=== PATIENT | female | born 1975 | race Caucasian/White ===

== ENCOUNTER 2023-01-22 12:47 | Emergency (ER) | payer SELFPAY ==
--- OUTSIDE RECORDS SUMMARY | 2023-01-22 12:51 | XMS REPORT | Continuity of Care Document ---
:1975 Author Organization [facility] t Address [address] [place] [address] Care Team Providers Name Role Phone ROSMERY PABLO Primary Care Physician Unavailable Bridget Saravia Attending Clinician Unavailable RONN CACERES Attending Clinician Unavailable RONN CACERES Attending Clinician Unavailable MALISSA ROSEN Attending Clinician Unavailable DELIO CORTES Attending Clinician Unavailable ROSMERY PABLO Attending Clinician Unavailable ELISA LUDWIG Attending Clinician Unavailable BILLY CORTEZ Attending Clinician Unavailable Billy Miguel Attending Clinician SHASHANK RAINES Attending Clinician Unavailable Doctor Unassigned, [place] Attending Clinician Unavailable Nandini Davenport Attending Clinician 2, [facility] Attending Clinician Unavailable NANDINI JOHNSON Attending Clinician Unavailable BILLY CORTEZ Admitting Clinician Unavailable Payers Payer Name Policy Type Policy Number Effective Date Expiration Date S ource COMMERCIAL [id number] 2021 NON-CONTRACT 00:00:00 GENERIC AETNA 53 [id number] [facility] ALLEGIANCE A [id number] 2021 CIGNA PLAN 00:00:00 Problems Condition Condition Condition Status Onset Resolution Last Treating Co mments Source Name Details Category Date Date Treatment Clinician Date No known No known Disease Unive rs active active ity of problems problems [facility] Allergies, Adverse Reactions, Alerts Allergy Allergy Status Severity Reaction(s) Onset Inactive Treating Comm ents Source Name Type Date Date Clinician NO KNOWN Drug Active Univers ALLERGIE Class ity of S [facility] Social History Social Habit Start Date Stop Date Quantity Comments Source Exposure to Not sure University of SARS-CoV-2 (event) [facility] History of Tobacco Current Smoker Co [facility] - Use [facility] Sex Assigned At [facility] - [facility] Alcohol intake 2021-09-12 2021-09-12 Current University of 00:00:00 00:00:00 non-drinker of [facility] alcohol Branch (finding) Cigarettes smoked 2021-03-17 2021-03-17 Univers ity of current (pack per 00:00:00 00:00:00 [facility] ) - Reported Branch Tobacco use and 2021-03-17 2021-03-17 Never used Universit y of exposure 00:00:00 00:00:00 [facility] Smoking Status Start Date Stop Date Source Current Smoker 2021-11-08 00:00:00 [facility] - [facility] Former smoker 2021-03-17 00:00:00 2021-03-17 00:00:00 Universi ty [facility] Medications Ordered Filled Start Stop Current Ordering Indication Dosage Frequency Signature Comments Components Source Medication Medication Date Date Medication? Clinician (SIG) Name Name Sulfamethox Sulfamethox 2021- No 2{table BID Sulfametho azole-Trime azole-Trime 10-13-03 t} xazole-Tri thoprim thoprim 00:00: 00:00 methoprim 800-160 MG 800-160 MG 00 :00 800-160 MG DULoxetine DULoxetine No 1{capsu QD DULoxetine HCl 20 MG HCl 20 MG 1-18 le} HCl 20 MG 00:00: 00 DULoxetine DULoxetine No 1{capsu QD DULoxetine HCl 20 MG HCl 20 MG 1-18 le} HCl 20 MG 00:00: 00 DULoxetine DULoxetine No 1{capsu QD DULoxetine HCl 20 MG HCl 20 MG 1-18 le} HCl 20 MG 00:00: 00 traMADol traMADol 2021- No 1{table BID traMADol HCl 50 MG HCl 50 MG 10-04 t_as_ne HCl 50 MG 00:00: 00:00 eded} 00 :00 HYDROcodone 2020-09- No 1{tbl} 1 tablet, Univers -acetaminop 11-13 Oral, ity of hen (NORCO 23:30: 22:37 ONCE, 1 Ancelmo as 5) 5-325 mg 00 :00 dose, On Medi jake tablet 1 Mon Branch tablet 09/12/21 at 1730, ANTONI ibuprofen 2020-09 Yes [id number] 800mg Take 1 Univers 800 mg 11-13 9103 tablet by ity of tablet 00:00: mouth [place] 00 every 8 Medical (eight) Branch hours as needed for Pain (scale 4-6). acetaminoph 2020-09- No [id number] 1{tbl} Take 1 U nivers en-codeine 11-13 tablet by ity of 300-30 mg 00:00: 05:59 mouth [place] tablet 00 :00 every 6 Medical (six) Branch hours as needed for Pain (scale 7-10) for up to 7 days. Indication s: acute pain metroNIDAZO 2020- No [id number] 500mg Take 1 Univers LE 500 mg 03-21- tablet by ity of tablet 00:00: 04:59 mouth 2 [place] 00 :00 (two) Medical times Branch daily with meals for 7 days. metroNIDAZO 2020- No [id number] 500mg Take 1 Univers LE 500 mg 03-21 tablet by ity of tablet 00:00: 04:59 mouth 2 [place] 00 :00 (two) Medical times Branch daily with meals for 7 days. metroNIDAZO 2020- No [id number] 500mg Take 1 Univers LE 500 mg -01 21- tablet by ity of tablet 00:00: 04:59 mouth 2 [place] 00 :00 (two) Medical times Branch daily with meals for 7 days. metroNIDAZO 2020- No [id number] 500mg Take 1 Univers LE 500 mg 03-21- tablet by ity of tablet 00:00: 04:59 mouth 2 [place] 00 :00 (two) Medical times Branch daily with meals for 7 days. acetaminoph 2020- No 1{tbl} Take 1 U nivers en-codeine -05 04- tablet by ity of (TYLENOL 00:00: 00:00 mouth [place] #3) 300-30 00 :00 every 4 Medica l mg tablet (four) Branch hours as needed for Pain (scale 7-10). acetaminoph 2020- No 1{tbl} Take 1 U nivers en-codeine 6-05 04- tablet by ity of (TYLENOL 00:00: 00:00 mouth [place] #3) 300-30 00 :00 every 4 Medica l mg tablet (four) Branch hours as needed for Pain (scale 7-10). No known No [facility] No known No Univers medications [facility] Ibuprofen Ibuprofen No TID Ibuprofen 800 MG 800 MG 800 MG Ibuprofen Ibuprofen No TID Ibuprofen 800 MG 800 MG 800 MG Ibuprofen Ibuprofen No TID Ibuprofen 800 MG 800 MG 800 MG Immunizations Ordered Filled Immunization Date Status Comments [facility] e Immunization Name Name SARS-COV-2 COVID-19 2021-02-24 Completed Unive rsity of MODERNA VACCINE 00:00:00 [facility] SARS-COV-2 COVID-19 2021-02-24 Completed Unive rsity of MODERNA VACCINE 00:00:00 [facility] SARS-COV-2 COVID-19 2021-02-24 Completed Unive rsity of MODERNA VACCINE 00:00:00 [facility] SARS-COV-2 COVID-19 2021-02-24 Completed Unive rsity of MODERNA VACCINE 00:00:00 [facility] SARS-COV-2 COVID-19 2021-02-24 Completed Unive rsity of MODERNA VACCINE 00:00:00 [facility] SARS-COV-2 COVID-19 2021-02-24 Completed Unive rsity of MODERNA VACCINE 00:00:00 [facility] SARS-COV-2 COVID-19 2021-02-24 Completed Unive rsity of MODERNA VACCINE 00:00:00 [facility] SARS-COV-2 COVID-19 2021-02-24 Completed Unive rsity of MODERNA VACCINE 00:00:00 [place] Med ical Branch SARS-COV-2 COVID-19 2021-02-24 Completed Unive rsity of MODERNA VACCINE 00:00:00 [facility] SARS-COV-2 COVID-19 2021-01-27 Completed Unive rsity of MODERNA VACCINE 00:00:00 [facility] SARS-COV-2 COVID-19 2021-01-27 Completed Unive rsity of MODERNA VACCINE 00:00:00 [facility] SARS-COV-2 COVID-19 2021-01-27 Completed Unive rsity of MODERNA VACCINE 00:00:00 [facility] Branch SARS-COV-2 COVID-19 2021-01-27 Completed Unive rsity of MODERNA VACCINE 00:00:00 [facility] Branch SARS-COV-2 COVID-19 2021-01-27 Completed Unive rsity of MODERNA VACCINE 00:00:00 [facility] Branch SARS-COV-2 COVID-19 2021-01-27 Completed Unive rsity of MODERNA VACCINE 00:00:00 [facility] Branch SARS-COV-2 COVID-19 2021-01-27 Completed Unive rsity of MODERNA VACCINE 00:00:00 [facility] Branch SARS-COV-2 COVID-19 2021-01-27 Completed Unive rsity of MODERNA VACCINE 00:00:00 [facility] Branch SARS-COV-2 COVID-19 2021-01-27 Completed Unive rsity of MODERNA VACCINE 00:00:00 [facility] Vital Signs Vital Name Observation Time Observation Value Comments Source height 2021-11-08 11:20:00 63.5 [in_i] [facility] weight 2021-11-08 11:20:00 194.0 [lb_av] [facility] temperature 2021-11-08 11:20:00 97.9 [degF] [facility] bmi 2021-11-08 11:20:00 33.82 kg/m2 [facility] oximetry 2021-11-08 11:20:00 99 % [facility] respiratory rate 2021-11-08 11:20:00 16 /min Comm on [facility] blood pressure 2021-11-08 11:20:00 123 mm[Hg] Common [facility] - systolic [facility] blood pressure 2021-11-08 11:20:00 80 mm[Hg] Common [facility] - diastolic [facility] height 2021-10-13 09:40:00 63.5 [in_i] Common [facility] weight 2021-10-13 09:40:00 196.0 [lb_av] Common [facility] temperature 2021-10-13 09:40:00 98.1 [degF] Common [facility] bmi 2021-10-13 09:40:00 34.17 kg/m2 [facility] oximetry 2021-10-13 09:40:00 98 % [facility] respiratory rate 2021-10-13 09:40:00 16 /min Comm on [facility] blood pressure 2021-10-13 09:40:00 136 mm[Hg] Common [facility] - systolic [facility] blood pressure 2021-10-13 09:40:00 78 mm[Hg] Common [facility] - diastolic [facility] height 2021-10-04 13:20:00 63.5 [in_i] Common [facility] weight 2021-10-04 13:20:00 195.0 [lb_av] Common [facility] temperature 2021-10-04 13:20:00 97.9 [degF] Common [facility] bmi 2021-10-04 13:20:00 34 kg/m2 [facility] oximetry 2021-10-04 13:20:00 97 % [facility] respiratory rate 2021-10-04 13:20:00 16 /min Comm on [facility] blood pressure 2021-10-04 13:20:00 138 mm[Hg] Common [facility] - systolic [facility] blood pressure 2021-10-04 13:20:00 82 mm[Hg] [facility] - diastolic [facility] Systolic blood 2021-09-12 20:59:00 143 mm[Hg] Univer sity of pressure [facility] Diastolic blood 2021-09-12 20:59:00 86 mm[Hg] Unive rsity of pressure [facility] Heart rate 2021-09-12 20:59:00 85 /min Universi ty of [facility] Body temperature 2021-09-12 20:59:00 36.94 Jen Univ ersity of [facility] Respiratory rate 2021-09-12 20:59:00 17 /min Univ ersity of [facility] Body height 2021-09-12 20:59:00 162.6 cm Universi ty of [facility] Body weight 2021-09-12 20:59:00 90.719 kg Universi ty of [facility] BMI 2021-09-12 20:59:00 34.33 kg/m2 Universi ty [facility] Oxygen saturation in 2021-09-12 20:59:00 98 /min University of Arterial blood by [facility] Pulse oximetry Branch Systolic blood 2021-03-17 20:12:00 128 mm[Hg] Univer sity of pressure [facility] Diastolic blood 2021-03-17 20:12:00 85 mm[Hg] Unive rsity of pressure [facility] Heart rate 2021-03-17 20:12:00 77 /min Universi ty of [facility] Body height 2021-03-17 20:12:00 162.6 cm [facility] Body weight 2021-03-17 20:12:00 91.627 kg [facility]i [facility] BMI 2021-03-17 20:12:00 34.67 kg/m2 [facility] Oxygen saturation in 2021-03-17 20:12:00 97 /min University of Arterial blood by [facility] Pulse oximetry Branch Procedures Procedure Date / Time Performed Performing Clinician Sourc e XR RIBS 3 VW RIGHT 2021-09-12 22:12:04 Billy Cortez Universi ty [facility] CONSENT/REFUSAL FOR 2021-09-12 20:55:31 Doctor Unassigned, No Un [facility] DIAGNOSIS AND Name [facility] TREATMENT EXTERNAL PROVIDER 2021-03-28 05:01:00 Doctor Unassigned, No Univ [facility] RECORDS Name [facility] Branch POCT URINALYSIS 2021-03-17 20:24:00 Nandini Johnson [facility] Encounters Start End Encounter Admission Attending Care Care Encounter Source Date/Time Date/Time Type Type Clinicians Facility Department ID 2022-02-08 Outpatient Saravia, STLMLC STLMLC [id number] Common 13:53:01 Bridget [facility] 2021-11-09 Outpatient Saravia, STLMLC STLMLC [id number] Common 10:02:05 Bridget [facility] 2021-11-04 Outpatient Saravia, STLMLC STLMLC [id number] Common 07:29:00 Bridget [facility] 2021-10-12 Outpatient Saravia, STLMLC STLMLC [id number] Common 14:36:58 Bridget [facility] 2022-12-26 2022-12-26 Outpatient Natty CORTES [facility] [id number] Univers 09:00:00 09:00:00 DELIO burch [facility] 2021-11-08 2021-11-08 OFFICE STLMLC STLMLC [id number] Co mmon 00:00:00 00:00:00 VISIT EST Spir it PT LEVEL 3 [facility] 2021-10-13 2021-10-13 OFFICE STLMLC STLMLC [id number] Co mmon 00:00:00 00:00:00 VISIT EST Spir it PT LEVEL 3 [facility] 2021-10-04 2021-10-04 OFFICE STLMLC STLMLC [id number] Co mmon 00:00:00 00:00:00 VISIT NEW Spir it PT LEVEL 4 [facility] 2021-09-27 2021-09-27 Outpatient Natty PABLO [facility] [id number] Univers 08:30:00 08:30:00 ROSMERY medrano [facility] 2021-09-27 2021-09-27 Outpatient R OZIEL, [facility] [id number] Univers 07:45:00 07:45:00 ELISA medrano [facility] 2021-09-12 2021-09-12 Emergency X [facility]IE[facility] [id number] Univers 15:01:00 17:09:00 BILLY medrano [facility] 2021-09-12 2021-09-12 [facility] [id number] Univers 15:01:00 17:09:00 Billy DEWITT [id number] i ty of [id number] [phone] [facility] 084 Branch 2021-04-18 2021-04-18 [facility] [id number] Univers 16:30:00 16:30:00 ROSMERY mitchell [facility] 2021-04-01 2021-04-01 [facility] [id number] Univers 15:00:00 15:00:00 SHASHANK ling [facility] 2021-03-28 2021-03-28 Orders Doctor MARTINEZ [id number] Univers 00:00:00 00:00:00 Only Unassigned, LANRE [id number] ity of [place] [facility] [id number] Ancelmo as [phone] [facility] 009 [place] 2021-03-21 2021-03-21 Telephone [facility] [id number] Univers 00:00:00 00:00:00 Nandini Dewitt [id number] it[id number] [phone] [facility] 044 [facility] 2021-03-21 2021-03-21 Telephone [facility] [id number] Univers 00:00:00 00:00:00 Nandini [facility] [id number] i ty of [place] [id number] [place] as Professio [phone] Mo dical nal 044 [facility] One 2021-03-18 2021-03-18 Telephone Elizabeth [facility] [id number] Univers 00:00:00 00:00:00 Nandini Dewitt [id number] it[id number] [phone] Mo dical nal 044 [facility] 2021-03-17 2021-03-17 Soft 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 [id number] Univers 15:00:00 15:53:47 NANDINI medrano o f [facility] Results Test Description Test Time Test Comments Results Result Comments Source POCT URINALYSIS W SPECIFIC GRAVITY 2021-03-17 20:25:00 Test Item Value Reference Range Interpretation Comme nts POCT U SP GRAV (test code = 3255) 1.030 mg/dl 1.005-1.025 A POCT PH U (test code = 3254) 5 mg/dl 5-8 POCT U LEUK EST (test code = 3263) Negative Negative - Negative POCT U NIT (test code = 3262) Negative Negative - Negative POCT U PROT (test code = 3259) Negative Negative - Negative POCT U GLU (test code = 3256) Negative Negative - Negative POCT U KETONE (test code = 3258) Negative Negative - Negative POCT U UROBILI (test code = 3260) 0.2 mg/dl 0.2-1 POCT U BILI (test code = 3261) Negative Negative - Negative POCT U BLD (test code = 3257) Negative Negative - Negative POCT U COLOR (test code = 3266) Yellow POCT U APPEAR (test code = 3267) Clear Lab Interpretation (test code = 08772-2) Abnormal [facility] SPECIFIC [id number] 20:25:00 Test Item Value Reference Range Interpretation Comments POCT U SP GRAV (test code = 1.030 mg/dl 1.005-1.025 A 3255) POCT PH U (test code = 3254) 5 mg/dl 5-8 POCT U LEUK EST (test code = Negative Negative - Negative 3263) POCT U NIT (test code = 3262) Negative Negative - Negative POCT U PROT (test code = Negative Negative - Negative 3259) POCT U GLU (test code = 3256) Negative Negative - Negative POCT U KETONE (test code = Negative Negative - Negative 3258) POCT U UROBILI (test code = 0.2 mg/dl 0.2-1 3260) POCT U BILI (test code = Negative Negative - Negative 3261) POCT U BLD (test code = 3257) Negative Negative - Negative POCT U COLOR (test code = Yellow 3266) POCT U APPEAR (test code = Clear 3267) Lab Interpretation (test code Abnormal = 74583-0) [facility]
[2023-01-22 15:32] LABS: Specific Gravity 1.027 (1.005-1.030); Urine Bacteria None Seen /HPF (<20); Urine Bilirubin NEGATIVE (Negative); Urine Blood Negative (Negative); Urine Clarity Extremely Turbid (Clear); Urine Color Light-Orange (Yellow); Urine Crystals Unidentified Many /HPF (None Seen); Urine Glucose NEGATIVE (Negative); Urine Protein NEGATIVE (Negative); Urine RBC <5 /HPF (None Seen); Urine Urobilinogen Normal (Normal); Urine WBC Clump Many /HPF (None Seen)
[2023-01-22 15:34] LABS: Specific Gravity 1.027 (1.005-1.030)
[2023-01-22 16:11] LABS: Lymphocytes % 27.3 % (15.3-44.8); MCV 86.8 fL (80-100); MPV 9.8 fL (7.6-11.3)
[2023-01-22] MEDS ORDERED: MORPHINE 4 MG/ML SYR ONE (16:16)
[2023-01-22] MEDS ORDERED: ONDANSETRON 4 MG/2 ML VIAL ONE (16:16)
[2023-01-22] MEDS ORDERED: NA CHLORIDE 0.9% 1,000 ML ONE (16:33)
[2023-01-22 16:38] LABS: Albumin 4.2 g/dL (3.4-5.0); Bilirubin Total 0.5 mg/dL (0.2-1.0); Potassium 3.6 mEq/L (3.5-5.1); Protein, Total 8.6 g/dL (6.4-8.2)
--- NOTE | 2023-01-22 18:07 | RAD REPORT ---
EXAM DESCRIPTION: CT - Abdomen Pelvis W Contrast - 01/22/2023 5:21 pm CLINICAL HISTORY: ABD PAIN COMPARISON: No comparisons TECHNIQUE: Thin cut axial CT imaging of the abdomen and pelvis was performed following intravenous a dministration of 100 mL Isovue 300. Multiplanar reformats were generated and reviewed. All CT scans are performed using dose optimization technique as appropriate and may include automated exposure control or mA/KV adjustment according to patient size. FINDINGS: No suspicious findings in the lung bases. 7 millimeter calcified granuloma just above the right hemidiaphragm. Hypoattenuating lesion, with nodular marginal enhancement, along the inferior margin of the liver jackie suring 1.2 centimeter, not fully characterized, but suggestive of a small hemangioma. No other parenc hymal hepatic abnormality. The adrenal glands, spleen, and pancreas show no suspicious findings. Gall bladder contains at least 2 sizable cholesterol containing stones, largest measuring 2.2 centimeter. Symmetric renal function is seen with no hydronephrosis or suspicious renal mass. No dilated bowel loops or bowel wall thickening. No free air, free fluid or inflammatory stranding. N o hernia, mass or bulky lymphadenopathy. The urinary bladder is without significant finding. No suspicious bony findings. IMPRESSION: No acute intra-abdominal process. Incidental findings as above.
--- NOTE | 2023-01-22 18:37 | ER ---
Nurse's Notes [facility] Name: Radha Jama Age: 47 yrs Sex: Female : 1975 Arrival Date: 01/22/2023 Time: 12:47 Bed 17 Private MD: Diagnosis: Upper abdominal pain, unspecified;Abdominal pain, unspecified-Left flank pain Presentation: 01/22 13:37 Chief complaint: Chief complaint: Patient states: Left flank pain x 1 week ago. Pt also aa5 reports nausea/vomiting/diarrhea, reports positive test 2 weeks ago. 13:37 Onset of symptoms was January 2023. aa5 13:37 Coronavirus screen: diarrhea, vomiting. Ebola Screen: Patient denies travel to an [facility] Ebola-affected area in the 21 days before illness onset. Initial Sepsis Screen: Does the patient meet any 2 criteria? No. Patient's initial sepsis screen is negative. Does the patient have a suspected source of infection? No. Patient's initial sepsis screen is negative. Risk Assessment: Do you want to hurt yourself or someone else? Patient reports no desire to harm self or others. 13:37 Acuity: SHERRIE 3 aa5 13:37 Method Of Arrival: Ambulatory aa5 Historical: - Allergies: 13:39 No Known Allergies; aa5 - Home Meds: 13:39 None [Active]; aa5 - PMHx: 13:39 None; aa5 - PSHx: 13:39 hysterectomy; aa5 13:39 Appendectomy; aa5 - Immunization history:: Adult Immunizations unknown. - Social history:: Smoking status: Patient denies any tobacco usage or history of. Screenin:01 [facility] ED Fall Risk Assessment (Adult) History of falling in the last 3 months, kc6 including since admission No falls in past 3 months (0 pts) Confusion or Disorientation No (0 pts) Intoxicated or Sedated No (0 pts) Impaired Gait No (0 pts) Mobility Assist Device Used No (0 pt) Altered Elimination No (0 pt) Score/Fall Risk Level 0 - 2 = Low Risk Oriented to surroundings, Maintained a safe environment, Educated pt \T\ family on fall prevention, incl call for assistance when getting out of bed, Assessed \T\ reinforced patient's understanding of fall precautions, Hourly rounding (assess needs \T\ fall precautionary measures) done. Abuse screen: Denies threats or abuse. Denies injuries from another. Nutritional screening: No deficits noted. Tuberculosis screening: No symptoms or risk factors identified. Assessment: 16:00 General: Appears in no apparent distress. uncomfortable, Behavior is cooperative, kc6 appropriate for age, crying. Pain: Complains of pain in left upper quadrant and left lower quadrant Pain does not radiate. Pain currently is 7 out of 10 on a pain scale. Neuro: Richards Agitation-Sedation Scale (RASS): 0 - Alert and Calm Level of Consciousness is awake, alert, obeys commands, Oriented to person, place, time, situation, Appropriate for age. Cardiovascular: Capillary refill < 3 seconds. Respiratory: Airway is patent Trachea midline Respiratory effort is even, unlabored, Respiratory pattern is regular, symmetrical. GI: Abdomen is flat, non-distended, Bowel sounds present X 4 quads. Abd is soft X 4 quads Abdomen is tender to palpation in left upper quadrant and left lower quadrant Reports lower abdominal pain, diarrhea, nausea, vomiting. : No signs and/or symptoms were reported regarding the genitourinary system. EENT: No signs and/or symptoms were reported regarding the EENT system. Derm: No signs and/or symptoms reported regarding the dermatologic system. Skin is intact, Skin is pink, warm \T\ dry. Musculoskeletal: No signs and/or symptoms reported regarding the musculoskeletal system. Circulation, motion, and sensation intact. Capillary refill < 3 seconds, Range of motion: intact in all extremities. 17:00 Reassessment: Patient appears in no apparent distress at this time. No changes from kc6 previously documented assessment. Patient and/or family updated on plan of care and expected duration. Pain level reassessed. Patient is alert, oriented x 3, equal unlabored respirations, skin warm/dry/pink. 18:00 Reassessment: Patient appears in no apparent distress at this time. No changes from kc6 previously documented assessment. Patient and/or family updated on plan of care and expected duration. Pain level reassessed. Patient is alert, oriented x 3, equal unlabored respirations, skin warm/dry/pink. 18:36 Reassessment: discharge pending fluid completion. kc6 19:00 Reassessment: ASSUMED CARE OF PT. PT NEEDING TO USE RESTROOM. PT UP AND AMBULATING TO [facility] BATHROOM. NO DIZZINESS NOTED. VS STABLE. AT BEDSIDE. 19:14 Reassessment: PT DCd PENDING FLUIDS. 500ML INFUSING. jj7 Vital Signs: 13:37 BP 145 / 99; Pulse 82; Resp 18 S; Temp 97.7(TE); Pulse Ox 99% on R/A; Weight 88.45 kg aa5 (R); Height 5 ft. 4 in. (R); 16:03 BP 143 / 86; Pulse 78; Resp 18 S; Pulse Ox 100% on R/A; Pain 7/10; kc6 17:01 BP 130 / 81; Pulse 69; Resp 18 S; Pulse Ox 96% on R/A; kc6 17:59 BP 119 / 73; Pulse 65; Resp 18 S; Pulse Ox 97% on R/A; kc6 19:00 BP 131 / 93; Pulse 72; Resp 18; Pulse Ox 99% ; jj7 19:48 BP 127 / 84; Pulse 67; Resp 20; Pulse Ox 97% ; jj7 13:37 Body Mass Index 33.47 (88.45 kg, 162.56 cm) aa5 16:03 Pain Scale: Adult [facility] ED Course: 12:50 Patient arrived in ED. mr 13:19 Markel Villalba MD is Attending Physician. kdr 13:37 Arm band placed on. aa5 13:42 Triage completed. aa5 15:48 Kenna Juárez, MARIIA is Primary Nurse. kc6 16:01 Patient has correct armband on for positive identification. Bed in low position. Call [facility] light in reach. Side rails up X 1. Adult w/ patient. 16:02 Inserted saline lock: 20 gauge in right antecubital area, using aseptic technique. [facility] Blood collected. 17:23 CT Abd/Pelvis - IV Contrast Only In Process Unspecified. EDMS 19:51 No provider procedures requiring assistance completed. IV discontinued, intact, jj7 bleeding controlled, No redness/swelling at site. Pressure dressing applied. Administered Medications: 16:14 Drug: morphine IVP or IV 4 mg Route: IVP; Infused Over: 4 mins; Site: right antecubital;[facility] 17:47 Follow up: Response: No adverse reaction; Pain is unchanged, physician notified; RASS: [facility] Alert and Calm (0) 16:14 Drug: Ondansetron IVP 4 mg Route: IVP; Site: right antecubital; kc6 17:47 Follow up: Response: No adverse reaction; Nausea is decreased kc6 16:29 Drug: NS 0.9% IV 1000 ml Route: IV; Rate: 1 bolus; Site: right antecubital; kc6 17:29 Follow up: Response: No adverse reaction; IV Status: Completed infusion; IV Intake: kc6 1000ml 18:42 Drug: NS 0.9% IV 500 ml Route: IV; Rate: bolus; Site: right antecubital; kc6 19:47 Follow up: IV Status: Completed infusion jj7 18:42 Drug: Ciprofloxacin PO 500 mg Route: PO; kc6 19:03 Follow up: Response: No adverse reaction kc6 18:42 Drug: metroNIDAZOLE PO 500 mg Route: PO; kc6 19:03 Follow up: Response: No adverse reaction kc6 19:48 Follow up: Response: No adverse reaction jj7 Medication: 19:52 VIS not applicable for this client. jj7 Intake: 17:29 IV: 1000ml; Total: 1000ml. kc6 Outcome: 18:36 Discharge ordered by . kdr 19:51 Discharged to home ambulatory, with significant other. jj7 19:51 Condition: good 19:51 Discharge instructions given to patient, Instructed on discharge instructions, medication usage, Demonstrated understanding of instructions, medications, Prescriptions given X 4. 19:52 Patient left the ED. jj7 Signatures: Dispatcher [employer] EDMS Markel Villalba MD MD kdr Hoa FloresDemetria RN RN Kenna Mora RN RN All Miranda RN RN jj7 Corrections: (The following items were deleted from the chart) 13:42 13:37 Chief complaint: aa5 aa5
--- NOTE | 2023-01-22 18:37 | EDPHYS ---
Physician Documentation [facility] Name: Radha Jama Age: 47 yrs Sex: Female : 1975 Arrival Date: 01/22/2023 Time: 12:47 Bed 17 Private MD: ED Physician Markel Villalba HPI: 01/22 17:30 This 47 yrs old Female presents to ER via Ambulatory with complaints of Abdominal Pain, kdr Flank Pain. 17:30 Patient complains of left flank pain for about a week. Patient is also had some nausea, kdr vomiting and diarrhea. She was reportedly had a positive test 2 weeks ago as well. Historical: - Allergies: 13:39 No Known Allergies; aa5 - Home Meds: 13:39 None [Active]; aa5 - PMHx: 13:39 None; aa5 - PSHx: 13:39 hysterectomy; aa5 13:39 Appendectomy; aa5 - Immunization history:: Adult Immunizations unknown. - Social history:: Smoking status: Patient denies any tobacco usage or history of. ROS: 17:32 Constitutional: Negative for fever, chills, and weight loss, Eyes: Negative for injury, kdr pain, redness, and discharge, Neck: Negative for injury, pain, and swelling, Cardiovascular: Negative for chest pain, palpitations, and edema, Respiratory: Negative for shortness of breath, cough, wheezing, and pleuritic chest pain, Back: Negative for injury and pain, : Negative for injury, bleeding, discharge, and swelling, MS/Extremity: Negative for injury and deformity, Skin: Negative for injury, rash, and discoloration, Neuro: Negative for headache, weakness, numbness, tingling, and seizure activity. Psych: Negative for depression, anxiety, suicide ideation, homicidal ideation, and hallucinations, Allergy/Immunology: Negative for hives, rash, and allergies, Endocrine: Negative for neck swelling, polydipsia, polyuria, polyphagia, and marked weight changes, Hematologic/Lymphatic: Negative for swollen nodes, abnormal bleeding, and unusual bruising. 17:32 Abdomen/GI: Positive for abdominal pain. 17:33 Abdomen/GI: Positive for nausea, vomiting, and diarrhea, of the anterior aspect of left kdr lateral abdomen, left upper quadrant and left lower quadrant. Exam: 17:33 Constitutional: This is a well developed, well nourished patient who is awake, alert, kdr and in no acute distress. Head/Face: Normocephalic, atraumatic. Eyes: Pupils equal round and reactive to light, extra-ocular motions intact. Lids and lashes normal. Conjunctiva and sclera are non-icteric and not injected. Cornea within normal limits. Periorbital areas with no swelling, redness, or edema. Neck: Trachea midline, no thyromegaly or masses palpated, and no cervical lymphadenopathy. Supple, full range of motion without nuchal rigidity, or vertebral point tenderness. No Meningismus. Chest/axilla: Normal chest wall appearance and motion. Nontender with no deformity. No lesions are appreciated. Cardiovascular: Regular rate and rhythm with a normal S1 and S2. No gallops, murmurs, or rubs. Normal PMI, no JVD. No pulse deficits. Respiratory: Lungs have equal breath sounds bilaterally, clear to auscultation and percussion. No rales, rhonchi or wheezes noted. No increased work of breathing, no retractions or nasal flaring. Back: No spinal tenderness. No costovertebral tenderness. Full range of motion. Skin: Warm, dry with normal turgor. Normal color with no rashes, no lesions, and no evidence of cellulitis. MS/ Extremity: Pulses equal, no cyanosis. Neurovascular intact. Full, normal range of motion. Neuro: Awake and alert, GCS 15, oriented to person, place, time, and situation. Cranial nerves II-XII grossly intact. Motor strength 5/5 in all extremities. Sensory grossly intact. Cerebellar exam normal. Normal gait. Psych: Awake, alert, with orientation to person, place and time. Behavior, mood, and affect are within normal limits. 17:33 Abdomen/GI: Inspection: abdomen appears normal, obese Bowel sounds: diminished, in all quadrants, Palpation: soft, mild abdominal tenderness, in the anterior aspect of left lateral abdomen, left upper quadrant and left lower quadrant. Vital Signs: 13:37 BP 145 / 99; Pulse 82; Resp 18 S; Temp 97.7(TE); Pulse Ox 99% on R/A; Weight 88.45 kg aa5 (R); Height 5 ft. 4 in. (R); 16:03 BP 143 / 86; Pulse 78; Resp 18 S; Pulse Ox 100% on R/A; Pain 7/10; kc6 17:01 BP 130 / 81; Pulse 69; Resp 18 S; Pulse Ox 96% on R/A; kc6 17:59 BP 119 / 73; Pulse 65; Resp 18 S; Pulse Ox 97% on R/A; kc6 19:00 BP 131 / 93; Pulse 72; Resp 18; Pulse Ox 99% ; jj7 19:48 BP 127 / 84; Pulse 67; Resp 20; Pulse Ox 97% ; jj7 13:37 Body Mass Index 33.47 (88.45 kg, 162.56 cm) aa5 16:03 Pain Scale: Adult kc6 MDM: 17:33 Data reviewed: vital signs, nurses notes, lab test result(s), radiologic studies. kdr 18:36 Patient medically screened. kdr 01/22 13:40 Order name: CBC with Diff; Complete Time: 17:29 aa5 01/22 13:40 Order name: CMP; Complete Time: 17:29 aa5 01/22 13:40 Order name: Lipase; Complete Time: 17:29 aa5 01/22 13:41 Order name: Test, Serum; Complete Time: 17:29 aa5 01/22 13:46 Order name: Urinalysis w/ reflexes; Complete Time: 16:04 aa5 01/22 13:46 Order name: Test, Urine; Complete Time: 16:04 aa5 01/22 15:36 Order name: Urine Culture EDSC 01/22 16:05 Order name: CT Abd/Pelvis - IV Contrast Only; Complete Time: 18:11 kdr 01/22 13:40 Order name: IV Saline Lock; Complete Time: 15:58 aa5 01/22 13:40 Order name: Labs collected and sent; Complete Time: 15:58 aa5 Administered Medications: 16:14 Drug: morphine IVP or IV 4 mg Route: IVP; Infused Over: 4 mins; Site: right antecubital;6 17:47 Follow up: Response: No adverse reaction; Pain is unchanged, physician notified; RASS: kc6 Alert and Calm (0) 16:14 Drug: Ondansetron IVP 4 mg Route: IVP; Site: right antecubital; 6 17:47 Follow up: Response: No adverse reaction; Nausea is decreased [facility] 16:29 Drug: NS 0.9% IV 1000 ml Route: IV; Rate: 1 bolus; Site: right antecubital; kc6 17:29 Follow up: Response: No adverse reaction; IV Status: Completed infusion; IV Intake: kc6 1000ml 18:42 Drug: NS 0.9% IV 500 ml Route: IV; Rate: bolus; Site: right antecubital; kc6 19:47 Follow up: IV Status: Completed infusion jj7 18:42 Drug: Ciprofloxacin PO 500 mg Route: PO; kc6 19:03 Follow up: Response: No adverse reaction kc6 18:42 Drug: metroNIDAZOLE PO 500 mg Route: PO; kc6 19:03 Follow up: Response: No adverse reaction kc6 19:48 Follow up: Response: No adverse reaction jj7 Disposition Summary: 01/22/23 18:36 Discharge Ordered Location: Home kdr Problem: new kdr Symptoms: have improved kdr Condition: Stable kdr Diagnosis - Upper abdominal pain, unspecified kdr - Abdominal pain, unspecified - Left flank pain kdr Followup: kdr - With: Private Physician - When: 2 - 3 days - Reason: If symptoms return, Further diagnostic work-up, Recheck today's complaints, Continuance of care, Re-evaluation by your physician Discharge Instructions: - Discharge Summary Sheet kdr - Flank Pain, Adult kdr - Abdominal Pain, Adult, [id number] kdr Forms: - Medication Reconciliation Form kdr - Thank You Letter kdr - Antibiotic Education kdr - Prescription Opioid Use kdr Prescriptions: - Flagyl 500 mg Oral Tablet - take 1 tablet by ORAL route every 12 hours for 7 days; 14 tablet; Refills: 0, kdr Product Selection Permitted - Zofran 4 mg Oral Tablet - take 1 tablet by ORAL route every 12 hours As needed; 6 tablet; Refills: 0, kdr Product Selection Permitted - Cipro 500 mg Oral Tablet - take 1 tablet by ORAL route every 12 hours for 7 days; 14 tablet; Refills: 0, kdr Product Selection Permitted - Tramadol 50 mg Oral Tablet - take 1 tablet by ORAL route every 8 hours as needed; 12 tablet; Refills: 0, kdr Product Selection Permitted Signatures: Dispatcher [employer] Markel Castellano MD MD kdr Demetria Molina RN RN aa5 Kenna Juárez RN RN kc6 All Shanks RN jj7
[2023-01-22] MEDS ORDERED: NA CHLORIDE 0.9% 500 ML ONE (18:43)
[2023-01-22] MEDS ORDERED: metroNIDAZOLE 500 MG TABLET ONE (18:45)
[2023-01-22] MEDS ORDERED: CIPROFLOXACIN HCL 500 MG TAB ONE (18:46)
[2023-01-22 20:41] VITALS: TEMP 97.7
[2023-01-22 20:50] VITALS: BP 127/84; O2SAT 97
== END 2023-01-22 19:52 | disposition home or self-care (01) ==
LOC: ER 12:47
DX: R10.10 Upper abdominal pain, unspecified (principal); R10.32 Left lower quadrant pain
CPT/HCPCS: 36415; 74177; 80053; 81001; 81025; 83690; 84703; 85025; 87086; 87088; 96361; 96374; 96375; 99284; J2405; J7030; J7040; Q9967

== ENCOUNTER 2023-08-15 18:50 | Emergency (ER) | payer SELFPAY ==
--- OUTSIDE RECORDS SUMMARY | 2023-08-15 19:33 | XMS REPORT | Continuity of Care Document ---
:[address] [facility] t Address [address] [place] [address] Care Team Providers Name Role Phone ROSMERY PABLO Primary Care Physician Unavailable Bridget Saravia Attending Clinician Unavailable RONN CACERES Attending Clinician Unavailable RONN CACERES Attending Clinician Unavailable Doctor Unassigned, [place] Attending Clinician Unavailable MALISSA ROSEN Attending Clinician Unavailable DELIO CORTES Attending Clinician Unavailable ROSMERY PABLO Attending Clinician Unavailable ELISA LUDWIG Attending Clinician Unavailable BILLY CORTEZ Attending Clinician Unavailable Billy Miguel Attending Clinician ADSHASHANK ARITA Attending Clinician Unavailable Nandini Davenport Attending Clinician 2, [facility] Attending Clinician Unavailable NANDINI JOHNSON Attending Clinician Unavailable BILLY CORTEZ Admitting Clinician Unavailable Payers Payer Name Policy Type Policy Number Effective Date Expiration Date S ource COMMERCIAL [id number] 2021 NON-CONTRACT 00:00:00 GENERIC AETNA 53 [id number] [facility] ALLEGIANCE A [id number] 2021 CIGNA PLAN 00:00:00 Problems Condition Condition Condition Status Onset Resolution Last Treating Co mments Source Name Details Category Date Date Treatment Clinician Date No known No known Disease Unive rs active active ity of problems problems [facility] Allergies, Adverse Reactions, Alerts Allergy Allergy Status Severity Reaction(s) Onset Inactive Treating Comm ents Source Name Type Date Date Clinician NO KNOWN Drug Active Univers ALLERGIE Class ity of S [facility] Social History Social Habit Start Date Stop Date Quantity Comments Source Sexual orientation Univer sity [facility] Exposure to Not sure University of SARS-CoV-2 (event) [facility] History of Tobacco Current Smoker Co m[facility] - Use [facility] Sex Assigned At Common [facility] [place] - [facility] Alcohol intake 2021-09-12 2021-09-12 Current University of 00:00:00 00:00:00 non-drinker of [facility] alcohol [place] (finding) History of Social 2021-03-17 2021-03-17 Univers ity of function 00:00:00 00:00:00 [facility] Cigarettes smoked 2021-03-17 2021-03-17 Univers ity of current (pack per 00:00:00 00:00:00 [facility] ) - Reported Branch Tobacco use and 2021-03-17 2021-03-17 Smokeless Universit y of exposure 00:00:00 00:00:00 tobacco non-[address] [facility] Smoking Status Start Date Stop Date Source Current Smoker 2021-11-08 00:00:00 [facility] Spiri t - [facility] Ex-smoker 2021-03-17 00:00:00 2021-03-17 00:00:00 Universi ty [facility] Medications Ordered Filled Start Stop Current Ordering [...] HCl 20 MG 00:00: 00 DULoxetine DULoxetine 0 No 1{capsu QD DULoxetine HCl 20 MG HCl 20 MG 1-18 le} HCl 20 MG 00:00: 00 DULoxetine DULoxetine No 1{capsu QD DULoxetine HCl 20 MG HCl 20 MG 10-04 le} HCl 20 MG 00:00: 00 traMADol [...] 09/12/21 at 1730, ANTONI ibuprofen 2020-09 Yes [id number] 800mg Take 1 Univers 800 mg 11-13 9103 tablet by ity of tablet 00:00: mouth [place] 00 every 8 Medical (eight) Branch hours as needed for Pain (scale 4-6). ibuprofen 2020-09 Yes [id number] 800mg Take 1 Univers 800 mg 11-13 9103 tablet by ity of tablet 00:00: mouth [place] 00 every 8 Medical (eight) Branch hours as needed for Pain (scale 4-6). acetaminoph 2020-09 No 4647 1{tbl} Take 1 U nivers en-codeine 11-13 tablet by ity of 300-30 mg 00:00: 05:59 mouth [place] tablet 00 :00 every 6 Medical (six) Branch hours as needed for Pain (scale 7-10) for up to 7 days. Indication s: acute pain metroNIDAZO 2020- No [id number] 500mg Take 1 Univers LE 500 mg 03-21 tablet by ity of tablet 00:00: 04:59 mouth 2 [place] 00 :00 (two) Medical times Branch daily with meals for 7 days. metroNIDAZO 2020- No [id number] 500mg Take 1 Univers LE 500 mg 03-21 tablet by ity of tablet 00:00: 04:59 mouth 2 [place] 00 :00 (two) Medical times Branch daily with meals for 7 days. metroNIDAZO 2020- No [id number] 500mg Take 1 Univers LE 500 mg 03-21 tablet by ity of tablet 00:00: 04:59 mouth 2 [place] 00 :00 (two) Medical times Branch daily with meals for 7 days. metroNIDAZO 2020- No [id number] 500mg Take 1 Univers LE 500 mg 03-21 tablet by ity of tablet 00:00: 04:59 mouth 2 [place] 00 :00 (two) Medical times Branch daily with meals for 7 days. acetaminoph 2020- No 1{tbl} Take 1 U nivers en-codeine 03-06 tablet by ity of (TYLENOL 00:00: 00:00 mouth [place] #3) 300-30 00 :00 every 4 Medica l mg tablet (four) Branch hours as needed for Pain (scale 7-10). acetaminoph 2020- No 1{tbl} Take 1 U nivers en-codeine 03-06 tablet by ity of (TYLENOL 00:00: 00:00 mouth [place] #3) 300-30 00 :00 every 4 Medica l mg tablet (four) Branch hours as needed for Pain (scale 7-10). No known No Univers medications ity of [facility] No known No [facility]fen Ibuprofen No TID Ibuprofen 800 MG 800 MG 800 MG Ibuprofen Ibuprofen No TID Ibuprofen 800 MG 800 MG 800 MG Ibuprofen Ibuprofen No TID Ibuprofen 800 MG 800 MG 800 MG Immunizations Ordered Filled Date Status Comments Source Immunization Name Immunization Name SARS-COV-2 COVID-2021-02-24 Completed Unive rsity of MODERNA VACCINE 00:00:00 [facility] SARS-COV-2 COVID-19 2021-02-24 Completed Unive rsity of MODERNA VACCINE 00:00:00 [facility] SARS-COV-2 COVID-19 2021-02-24 Completed Unive rsity of MODERNA VACCINE 00:00:00 [facility] SARS-COV-2 COVID-19 2021-02-24 Completed Unive rsity of MODERNA VACCINE 00:00:00 [facility] SARS-COV-2 COVID-19 2021-02-24 Completed Unive rsity of MODERNA VACCINE 00:00:00 [facility] SARS-COV-2 COVID-19 2021-02-24 Completed Unive rsity of MODERNA VACCINE 00:00:00 [place] Med ical Branch SARS-COV-2 COVID-19 2021-02-24 Completed Unive rsity of MODERNA VACCINE 00:00:00 [place] Med ical Branch SARS-COV-2 COVID-19 2021-02-24 Completed Unive rsity of MODERNA VACCINE 00:00:00 [place] Med ical Branch SARS-COV-2 COVID-19 2021-02-24 Completed Unive rsity of MODERNA VACCINE 00:00:00 [place] Med ical Branch SARS-COV-2 COVID-19 2021-01-27 Completed Unive rsity of MODERNA VACCINE 00:00:00 [place] Med ical Branch SARS-COV-2 COVID-19 2021-01-27 Completed Unive rsity of MODERNA VACCINE 00:00:00 [place] Med ical Branch SARS-COV-2 COVID-19 2021-01-27 Completed Unive rsity of MODERNA VACCINE 00:00:00 [place] Med ical Branch SARS-COV-2 COVID-19 2021-01-27 Completed Unive rsity of MODERNA VACCINE 00:00:00 [place] Med ical Branch SARS-COV-2 COVID-19 2021-01-27 Completed Unive rsity of MODERNA VACCINE 00:00:00 [place] Med ical Branch SARS-COV-2 COVID-19 2021-01-27 Completed Unive rsity of MODERNA VACCINE 00:00:00 [place] Med ical Branch SARS-COV-2 COVID-19 2021-01-27 Completed Unive rsity of MODERNA VACCINE 00:00:00 [place] [facility] ical Branch SARS-COV-2 COVID-19 2021-01-27 Completed Unive rsity of MODERNA VACCINE 00:00:00 [place] Med ical Branch SARS-COV-2 COVID-19 2021-01-27 Completed Unive rsity of MODERNA VACCINE 00:00:00 [place] Med ical Branch SARS-COV-2 COVID-19 Unknown Completed Unive rsity of MODERNA 12+ YRS [place] Med ical VACCINE Branch SARS-COV-2 COVID-19 Unknown Completed Unive rsity of MODERNA 12+ YRS [place] Med ical VACCINE Branch Vital Signs Vital Name Observation Time Observation Value Comments Source height 2021-11-08 11:20:00 63.5 [in_i] [facility] weight 2021-11-08 11:20:00 194.0 [lb_av] [facility] temperature 2021-11-08 11:20:00 97.9 [degF] Common [facility] bmi 2021-11-08 11:20:00 33.82 kg/m2 Common [facility] oximetry 2021-11-08 11:20:00 99 % [facility] respiratory rate 2021-11-08 11:20:00 16 /min Comm on [facility] blood pressure 2021-11-08 11:20:00 123 mm[Hg] [facility] - systolic [facility] blood pressure 2021-11-08 11:20:00 80 mm[Hg] Common [facility] - diastolic [facility] height 2021-10-13 09:40:00 63.5 [in_i] Common [facility] weight 2021-10-13 09:40:00 196.0 [lb_av] [facility] temperature 2021-10-13 09:40:00 98.1 [degF] [facility] bmi 2021-10-13 09:40:00 34.17 kg/m2 [facility] oximetry 2021-10-13 09:40:00 98 % Common [facility] respiratory rate 2021-10-13 09:40:00 16 /min Comm on [facility] blood pressure 2021-10-13 09:40:00 136 mm[Hg] Common [facility] - systolic [facility] blood pressure 2021-10-13 09:40:00 78 mm[Hg] Common [facility] - diastolic [facility] height 2021-10-04 13:20:00 63.5 [in_i] Common [facility] weight 2021-10-04 13:20:00 195.0 [lb_av] Common [facility] temperature 2021-10-04 13:20:00 97.9 [degF] Common [facility] bmi 2021-10-04 13:20:00 34 kg/m2 Common [facility] oximetry 2021-10-04 13:20:00 97 % Common S [facility] respiratory rate 2021-10-04 13:20:00 16 /min Comm on [facility] blood pressure 2021-10-04 13:20:00 138 mm[Hg] Common [facility] - systolic [facility] blood pressure 2021-10-04 13:20:00 82 mm[Hg] Common [facility] diastolic [facility] Systolic blood 2021-09-12 20:59:00 143 mm[Hg] Univer sity of [facility] Diastolic blood 2021-09-12 20:59:00 86 mm[Hg] Unive rsity of [facility] Heart rate 2021-09-12 20:59:00 85 /min Universi ty [facility] Body temperature 2021-09-12 20:59:00 36.94 Jen [facility] Res[facility] rate 2021-09-12 20:59:00 17 /min [facility] Body height 2021-09-12 20:59:00 162.6 cm Universi [facility] Body weight 2021-09-12 20:59:00 [facility]19 [facility] 2021-09-12 20:59:00 34.33 kg/m2 [facility] Oxygen saturation in 2021-09-12 20:59:00 98 /min University Arterial blood by [facility] Pulse oximetry Branch Systolic blood 2021-03-17 20:12:00 128 mm[Hg] Univer sity of [facility] Diastolic blood 2021-03-17 20:12:00 85 mm[Hg] Unive rsity of [facility] Heart rate 2021-03-17 20:12:00 77 /min Universi ty [facility] Body height 2021-03-17 20:12:00 162.6 cm [facility] Body weight 2021-03-17 20:12:00 91.627 kg [facility] BMI 2021-03-17 20:12:00 34.67 kg/m2 [facility] Oxygen saturation in 2021-03-17 20:12:00 97 /min University Arterial blood by [facility] Pulse oximetry Branch Procedures Procedure Date / Time Performed Performing Clinician Sourc e XR RIBS 3 VW RIGHT 2021-09-12 22:12:04 Billy Cortez [facility] CONSENT/REFUSAL FOR 2021-09-12 20:55:31 Doctor Unassigned, No Un [facility] DIAGNOSIS AND Name [facility] TREATMENT EXTERNAL PROVIDER 2021-03-28 05:01:00 Doctor Unassigned, No Univ [facility] RECORDS Name [facility] POCT URINALYSIS 2021-03-17 20:24:00 Nandini Johnson [facility] Encounters Start End Encounter Admission Attending Care Care Encounter Source Date/Time Date/Time Type Type Clinicians Facility Department ID 2022-02-08 Outpatient Saravia, STLMLC STLC [id number] Common 13:53:01 Bridget [facility] 2021-11-09 Outpatient Saravia, STLMLC STLMLC [id number] Common 10:02:05 Bridget [facility] 2021-11-04 Outpatient Saravia, STLMLC STLMLC [id number] Common 07:29:00 Bridget [facility] 2021-10-12 Outpatient Saravia, STLMLC STLMLC [id number] Common 14:36:58 Bridget [facility] 2023-02-02 2023-02-02 Outpatient RONN JOINER [facility] 1 [id number] Univers 11:00:00 11:00:00 RONN CACERES [facility] 2023-01-31 2023-01-31 Patient Doctor UNIVERSIT [id number] Univers 00:00:00 00:00:00 Secure Msg Unassigned, [facility] [id number] ity of [place] [facility] [id number] [facility] [id number] [address] 2022-12-26 2022-12-26 Outpatient Natty CORTES [facility] [id number] Univers 09:00:00 09:00:00 DELIO itling o f [facility] 2021-11-08 2021-11-08 OFFICE STLMLC STLMLC [id number] Co mmon 00:00:00 00:00:00 VISIT EST Spir it PT LEVEL 3 - [facility] 2021-10-13 2021-10-13 OFFICE STLMLC STLMLC [id number] Co mmon 00:00:00 00:00:00 VISIT EST Spir it PT LEVEL 3 - [facility] 2021-10-04 2021-10-04 OFFICE STLMLC STLMLC [id number] Co mmon 00:00:00 00:00:00 VISIT NEW Spir it PT LEVEL 4 - [facility] 2021-09-27 2021-09-27 Outpatient [facility] [id number] Univers 08:30:00 08:30:00 ROSMERY medrano [facility] 2021-09-27 2021-09-27 Outpatient Natty [facility] [id number] Univers 07:45:00 07:45:00 ELISA medrano [facility] 2021-09-12 2021-09-12 Emergency X CORTEZ, [facility] ERT [id number] Univers 15:01:00 17:09:00 BILLY nortonling [facility] 2021-09-12 2021-09-12 Emergency Cortez, [facility] [id number] Univers 15:01:00 17:09:00 Billy ESDRAS [id number] i ty of [place] [id number] [facility] [id number] [address] 2021-04-18 2021-04-18 Outpatient Natty [facility] [id number] Univers 16:30:00 16:30:00 ROSMERY medrano [facility] 2021-04-01 2021-04-01 Outpatient R YANNA, [facility] [id number] Univers 15:00:00 15:00:00 SHASHANK ity of [facility] 2021-03-28 2021-03-28 Orders Doctor MARTINEZ [id number] Univers 00:00:00 00:00:00 Only Unassigned, LANRE [id number] ity of [place] [facility] [id number] Ancelmo as [phone] [address] 2021-03-21 2021-03-21 Telephone [facility] [id number] Univers 00:00:00 00:00:00 Nandini Bynum [id number] it[id number] [place] [phone] Ms dic[address] 2021-03-21 2021-03-21 Telephone [facility] [id number] Univers 00:00:00 00:00:00 Nandini [facility] [id number] i ty of [place] [id number] [place] as Professio [phone] [facility] 044 [place] Office [facility] 2021-03-18 2021-03-18 Telephone [facility] [id number] Univers 00:00:00 00:00:00 Nandini Bynum [id number] [id number] [phone] Ms dical nal 044 [facility] 2021-03-17 2021-03-17 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 Supervisor 2, Adc Lab [facility] [id number] Univers 16:00:17 16:15:17 Visit Nandini oJhnson [id number] ity [place] [id number] [place] [phone] [facility] 353 [facility] 2021-03-17 2021-03-17 Office [facility] [id number] Univers 15:02:32 15:53:47 Visit Nandini Esdras [id number] [place] [id number] Marci Salazar [phone] Ms dical nal 044 [facility] 2021-03-17 2021-03-17 Outpatient Natty JOHNSON [facility] [id number] Univers 15:00:00 15:53:47 NANDINI medrano o f [facility] Results Test Description Test Time Test [...] 3267) Clear Lab Interpretation (test code = 16497-7) Abnormal [facility] W SPECIFIC [id number] 20:25:00 Test Item Value Reference Range Interpretation [...] (test code = Negative Negative - Negative 326) POCT U BLD (test code = 3257) Negative Negative - Negative POCT U COLOR (test code = Yellow 3266) POCT U APPEAR (test code = Clear 3267) Lab Interpretation (test code Abnormal = 40713-9) [facility]
[2023-08-15] MEDS ORDERED: ONDANSETRON 4 MG (ODT) TAB ONE (20:55)
--- NOTE | 2023-08-15 22:16 | EDPHYS ---
Physician Documentation [facility] Name: Radha Jama Age: 48 yrs Sex: Female : 1975 Arrival Date: 08/15/2023 Time: 18:50 Bed IW2 Private MD: ED Physician Marcellus Bear HPI: 08/15 20:45 This 48 yrs old Female presents to ER via Ambulatory with complaints of Flu Symptoms. cp 20:45 The patient or guardian reports cough, flu symptoms, fever, chills, body aches, sore cp throat. 20:45 Onset: The symptoms/episode began/occurred yesterday. Associated signs and symptoms: cp Pertinent negatives: diarrhea, vomiting. 20:45 Severity of symptoms: in the emergency department the symptoms are unchanged despite cp home interventions. 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 - Social history:: Smoking status: Patient denies any tobacco usage or history of. Patient/guardian denies using alcohol, street drugs. ROS: 20:50 Constitutional: Positive for body aches, chills, Negative for fever, poor PO intake, cp 20:50 Eyes: Negative for injury, pain, redness, and discharge, cp 20:50 ENT: Positive for rhinorrhea, sore throat, Negative for drainage from ear(s), ear pain, difficulty swallowing, difficulty handling secretions, 20:50 Respiratory: Positive for cough, with no reported sputum, Negative for wheezing, 20:50 Abdomen/GI: Negative for abdominal pain, vomiting, diarrhea, constipation, 20:50 Neuro: Negative for altered mental status, headache, weakness, 20:50 All other systems are negative, Exam: 20:55 Constitutional: The patient appears in no acute distress, alert, awake, non-toxic, well cp developed, well nourished, 20:55 Head/Face: Normocephalic, atraumatic. cp 20:55 Eyes: Periorbital structures: appear normal, Conjunctiva: normal, no exudate, no cp injection, Sclera: no appreciated abnormality, Lids and lashes: appear normal, bilaterally, 20:55 ENT: External ear(s): are unremarkable, Ear canal(s): are normal, clear, TM's: dullness, bilaterally, Nose: nasal drainage, that is minimal, Mouth: Lips: moist, Oral mucosa: moist, Posterior pharynx: Tonsils: no enlargement, no exudate, erythema, that is mild, 20:55 Neck: ROM/movement: is normal, is supple, no meningismus, no nuchal rigidity, 20:55 Chest/axilla: Inspection: normal, 20:55 Cardiovascular: Rate: normal, Rhythm: regular, 20:55 Respiratory: the patient does not display signs of respiratory distress, Respirations: normal, no use of accessory muscles, no retractions, labored breathing, is not present, Breath sounds: decreased breath sounds, are not appreciated, stridor, is not appreciated, + upper airway congestion. wheezing: is not appreciated, 20:55 Abdomen/GI: Exam negative for discomfort, distension, guarding, Inspection: abdomen appears normal, Vital Signs: 20:31 BP 146 / 91; Pulse 95; Resp 20; Temp 98.4; Pulse Ox 100% ; Weight 83.91 kg; Height 5 jj7 ft. 4 in. ; Pain 6/10; 22:43 BP 133 / 89; Pulse 89; Resp 18 S; Pulse Ox 100% on R/A; lg3 20:31 Body Mass Index 31.75 (83.91 kg, 162.56 cm) jj7 20:31 Pain Scale: Adult jj7 MDM: 20:37 Patient medically screened. cp 22:15 Data reviewed: vital signs, nurses notes, lab test result(s). cp 22:15 Differential diagnosis: bronchitis, flu, strep throat. I considered the following cp discharge prescriptions or medication management in the emergency department Medications were administered in the Emergency Department. See MAR. Counseling: I had a detailed discussion with the patient and/or guardian regarding the historical points, exam findings, and any diagnostic results supporting the discharge/admit diagnosis, lab results, to return to the emergency department if symptoms worsen or persist or if there are any questions or concerns that arise at home. 08/15 20:38 Order name: COVID-19 SARS RT PCR; Complete Time: 22:13 cp 08/15 22:14 Interpretation: Reviewed. cp 08/15 20:38 Order name: Influenza Screen (a \T\ B); Complete Time: 22:13 cp 08/15 22:14 Interpretation: Reviewed. cp 08/15 20:38 Order name: Strep; Complete Time: 22:13 cp 08/15 22:14 Interpretation: Reviewed. cp 08/15 21:20 Order name: Throat Culture EDMS Administered Medications: 20:43 Drug: Ondansetron PO 4 mg PO once Route: PO; jj7 22:49 Follow up: Response: No adverse reaction; Marked relief of symptoms lg3 Disposition Summary: 08/15/23 22:15 Discharge Ordered Notes: Location: Home cp Problem: new cp Symptoms: have improved cp Condition: Stable cp Diagnosis - Cough cp - Acute pharyngitis, unspecified cp Followup: cp - With: Private Physician - When: 2 - 3 days - Reason: Worsening of condition Discharge Instructions: - Discharge Summary Sheet cp - Sore Throat cp - Cough, Adult cp Forms: - Medication Reconciliation Form cp - Thank You Letter cp - Antibiotic Education cp - Prescription Opioid Use cp - Patient Portal Instructions cp - Leadership Thank You Letter cp - Work release form lg3 Prescriptions: - Bromfed DM 2-30-10 mg/5 mL Oral syrup - administer 10 milliliter ORAL route every 6 hours as needed for cold symptoms; cp 240 milliliter; Refills: 0, Product Selection Permitted Signatures: Dispatcher [employer] EDKY Marcellus Daugherty PA PA cp Johnson, Juwairiyah RN RN jj7 Humaira Cat RN lg3 Corrections: (The following items were deleted from the chart) 08/16 21:37 08/15 20:45 The patient or guardian reports cough, flu symptoms, fever, body aches, cp sore throat, cp
--- NOTE | 2023-08-15 22:16 | ER ---
Nurse's Notes [facility] Name: Radha Jama Age: 48 yrs Sex: Female : 1975 Arrival Date: 08/15/2023 Time: 18:50 Bed IW2 Private MD: Diagnosis: Cough;Acute pharyngitis, unspecified Presentation: 08/15 20:31 Chief complaint: Patient states: GAVE PLASMA YESTERDAY. NOW FEELING CHILLS, BODY ACHES, jj7 SORE THROAT AND COUGH. Coronavirus screen: chills, cough unrelated to allergies, fatigue. Ebola Screen: No symptoms or risks identified at this time. Initial Sepsis Screen: Does the patient meet any 2 criteria? No. Patient's initial sepsis screen is negative. Does the patient have a suspected source of infection? No. Patient's initial sepsis screen is negative. Risk Assessment: Do you want to hurt yourself or someone else? Patient reports no desire to harm self or others. Note 12P NYQUIL. Onset of symptoms was August 15, 2023. 20:31 Method Of Arrival: Ambulatory [facility] 20:31 Acuity: SHERRIE 4 jj7 Triage Assessment: 20:35 General: Appears in no apparent distress. uncomfortable, Behavior is calm, cooperative, jj7 appropriate for age. Pain: Complains of pain in BODY ACHES. EENT: Reports pain SORE THROAT. 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 - Social history:: Smoking status: Patient denies any tobacco usage or history of. Patient/guardian denies using alcohol, street drugs. Screenin:39 [facility] ED Fall Risk Assessment (Adult) History of falling in the last 3 months, jj7 including since admission No falls in past 3 months (0 pts) Confusion or Disorientation No (0 pts) Intoxicated or Sedated No (0 pts) Impaired Gait No (0 pts) Mobility Assist Device Used No (0 pt) Altered Elimination No (0 pt) Score/Fall Risk Level 0 - 2 = Low Risk Oriented to surroundings, Maintained a safe environment. Abuse screen: Denies threats or abuse. Nutritional screening: No deficits noted. Tuberculosis screening: No symptoms or risk factors identified. Assessment: 22:43 General: Appears in no apparent distress. comfortable, Behavior is calm, cooperative. lg3 Pain: Complains of pain in body aches. Neuro: No deficits noted. Richards Agitation-Sedation Scale (RASS): 0 - Alert and Calm Level of Consciousness is awake, alert, obeys commands, Oriented to person, place, time, situation. Cardiovascular: No deficits noted. Denies chest pain, Capillary refill < 3 seconds Clubbing of nail beds is absent JVD is absent Patient's skin is warm and dry. Respiratory: No deficits noted. Airway is patent Respiratory effort is even, unlabored, Respiratory pattern is regular, symmetrical. GI: No deficits noted. No signs and/or symptoms were reported involving the gastrointestinal system. Abdomen is round non-distended, obese. : No deficits noted. No signs and/or symptoms were reported regarding the genitourinary system. EENT: No deficits noted. No signs and/or symptoms were reported regarding the EENT system. Derm: No deficits noted. No signs and/or symptoms reported regarding the dermatologic system. Skin is intact, is healthy with good turgor, Skin is dry, Skin is normal, Skin temperature is warm. Musculoskeletal: No deficits noted. No signs and/or symptoms reported regarding the musculoskeletal system. Circulation, motion, and sensation intact. Range of motion: intact in all extremities. Vital Signs: 20:31 BP 146 / 91; Pulse 95; Resp 20; Temp 98.4; Pulse Ox 100% ; Weight 83.91 kg; Height 5 jj7 ft. 4 in. ; Pain 6/10; 22:43 BP 133 / 89; Pulse 89; Resp 18 S; Pulse Ox 100% on R/A; lg3 20:31 Body Mass Index 31.75 (83.91 kg, 162.56 cm) jj7 20:31 Pain Scale: Adult jj7 ED Course: 18:53 Patient arrived in ED. mg5 20:11 Marcellus Daugherty PA is PHCP. cp 20:11 Marcellus Bear MD is Attending Physician. cp 20:35 Triage completed. jj7 20:35 Arm band placed on right wrist. jj7 20:39 Patient has correct armband on for positive identification. Adult w/ patient. jj7 20:39 No provider procedures requiring assistance completed. jj7 20:43 Strep Sent. jj7 20:43 Influenza Screen (a \T\ B) Sent. jj7 20:43 COVID-19 SARS RT PCR Sent. jj7 22:43 Patient did not have IV access during this emergency room visit. lg3 Administered Medications: 20:43 Drug: Ondansetron PO 4 mg PO once Route: PO; jj7 :49 Follow up: Response: No adverse reaction; Marked relief of symptoms lg3 Medication: 22:43 VIS not applicable for this client. lg3 Outcome: 22:15 Discharge ordered by MD. domingo 22:43 Discharged to home ambulatory, lg3 22:43 Condition: stable 22:43 Discharge instructions given to patient, Instructed on discharge instructions, follow up and referral plans. medication usage, Demonstrated understanding of instructions, follow-up care, medications, Prescriptions given X 1, :49 Patient left the ED. lg3 Signatures: Marcellus Daugherty PA PA cp Gibson, Lacie, RN RN lg3 All Shanks RN RN jj7 Catrachita Prasad mg5
[2023-08-15 23:23] VITALS: TEMP 98.4; O2SAT 100
[2023-08-15 23:26] VITALS: BP 133/89
== END 2023-08-15 22:49 | disposition home or self-care (01) ==
LOC: ER 18:50
DX: R05.9 Cough, unspecified (principal); J02.9 Acute pharyngitis, unspecified; Z11.52 Encounter for screening for COVID-19
CPT/HCPCS: 87070; 87081; 87635; 87804; 99283; Q0162

== ENCOUNTER 2024-07-13 19:47 | Emergency (ER) | payer OTHER ==
[2024-07-13] MEDS ORDERED: HYDROCODONE/APAP 10/325 TAB ONE (20:48)
[2024-07-13] MEDS ORDERED: LIDOCAINE 1% MPF 5 ML VIAL ONE (20:48)
[2024-07-13] MEDS ORDERED: IBUPROFEN 200 MG TAB PO ONE (20:48)
--- NOTE | 2024-07-13 21:03 | ER ---
Nurse's Notes [facility] Name: Radha Jama Age: 49 yrs Sex: Female : 1975 Arrival Date: 07/13/2024 Time: 19:47 Bed 17 Private MD: Diagnosis: Cutaneous abscess of back [any part, except buttock] Presentation: 07/13 20:15 Chief complaint: Patient states: Pt c/o a bug bite to her back that is getting tl4 progressively worse x 3-4 days. Pt denies fever. Coronavirus screen: At this time, the client does not indicate any symptoms associated with coronavirus-19. Ebola Screen: No symptoms or risks identified at this time. Initial Sepsis Screen: Does the patient meet any 2 criteria? No. Patient's initial sepsis screen is negative. Does the patient have a suspected source of infection? No. Patient's initial sepsis screen is negative. Risk Assessment: Do you want to hurt yourself or someone else? Patient reports no desire to harm self or others. Onset of symptoms was July 09, 2024. 20:15 Method Of Arrival: Ambulatory tl4 20:15 Acuity: SHERRIE 3 tl4 Triage Assessment: 20:18 Bite description: bite sustained to back by an unknown animal, animal information: tl4 vaccination(s) is not applicable. General: Appears in no apparent distress. Behavior is calm, cooperative. Pain: Complains of pain in back. EENT: No signs and/or symptoms were reported regarding the EENT system. Neuro: Level of Consciousness is awake, alert, obeys commands, Oriented to person, place, time, situation. Cardiovascular: Capillary refill < 3 seconds Patient's skin is warm and dry. Respiratory: Airway is patent Respiratory effort is even, unlabored, Respiratory pattern is regular, symmetrical, Breath sounds are clear bilaterally. GI: No signs and/or symptoms were reported involving the gastrointestinal system. : No signs and/or symptoms were reported regarding the genitourinary system. Derm: Abscess located on back. Musculoskeletal: No signs and/or symptoms reported regarding the musculoskeletal system. 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 - Infectious Disease History:: Denies. - Social history:: Smoking status: Patient denies any tobacco usage or history of. - Family history:: not pertinent. - Hospitalizations: : No recent hospitalization is reported. Screenin:22 [facility] ED Fall Risk Assessment (Adult) History of falling in the last 3 months, tl4 including since admission No falls in past 3 months (0 pts) Confusion or Disorientation No (0 pts) Intoxicated or Sedated No (0 pts) Impaired Gait No (0 pts) Mobility Assist Device Used No (0 pt) Altered Elimination No (0 pt) Score/Fall Risk Level 0 - 2 = Low Risk Oriented to surroundings, Maintained a safe environment, Educated pt \T\ family on fall prevention, incl call for assistance when getting out of bed, Assessed \T\ reinforced patient's understanding of fall precautions. Abuse screen: Denies threats or abuse. Denies injuries from another. Nutritional screening: No deficits noted. Tuberculosis screening: No symptoms or risk factors identified. Assessment: 20:20 General: Appears in no apparent distress. Pain: Complains of pain in back. Neuro: Level tl4 of Consciousness is awake, alert, obeys commands, Oriented to person, place, time, situation. Cardiovascular: Capillary refill < 3 seconds Patient's skin is warm and dry. Respiratory: Airway is patent Respiratory effort is even, unlabored, Respiratory pattern is regular, symmetrical. GI: No signs and/or symptoms were reported involving the gastrointestinal system. : No signs and/or symptoms were reported regarding the genitourinary system. EENT: No signs and/or symptoms were reported regarding the EENT system. Derm: Skin abscess Skin is red. Musculoskeletal: No signs and/or symptoms reported regarding the musculoskeletal system. Vital Signs: 20:15 BP 140 / 80; Pulse 75; Resp 18; Temp 99.3(O); Pulse Ox 99% on R/A; Pain 10/10; tl4 21:27 BP 128 / 75; Pulse 70; Resp 18; Temp 98.1(O); Pulse Ox 99% ; tl4 20:15 Pain Scale: Adult tl4 ED Course: 19:52 Patient arrived in ED. gm2 19:53 Jey Jimenez MD is Attending Physician. rn 20:18 Triage completed. tl4 20:20 Arm band placed on right wrist. tl4 20:22 Patient has correct armband on for positive identification. Placed in gown. Bed in low tl4 position. Call light in reach. Side rails up X 1. Adult w/ patient. Provided Education on: ed process, call foster. Client placed on continuous cardiac and pulse oximetry monitoring. NIBP monitoring applied. Door closed. Noise minimized. Lights dimmed. Moved to private room. Warm blanket given. 20:23 No provider procedures requiring assistance completed. Patient did not have IV access tl4 during this emergency room visit. 20:58 Josh Pickett, MARIIA is Primary Nurse. tl4 21:28 Wound care: was dressed with 4X4s, pressure dressing secured with tape. tl4 Administered Medications: 20:59 Drug: Lidocaine Infiltration (1 %) 1 vials 5 ml Infiltration once; to bedside {Note: tl4 administered by Dr Jimenez to affected area.} Volume: 5 ml; Route: Infiltration; Site: affected area; 21:15 Follow up: Response: No adverse reaction tl4 20:59 Drug: Cool PO 10 mg-325 mg 1 tabs PO once Route: PO; tl4 21:14 Follow up: Response: No adverse reaction; Pain is decreased tl4 20:59 Drug: Ibuprofen PO 600 mg PO once Route: PO; tl4 21:14 Follow up: Response: No adverse reaction; Pain is decreased tl4 21:27 Drug: Trimethoprim-Sulfamethoxazole PO (160 mg-800 mg (DS) 1 tablet PO once Route: PO; tl4 21:27 Follow up: Response: No adverse reaction; Medication administered at discharge. tl4 Medication: 20:22 VIS not applicable for this client. tl4 Outcome: 21:03 Discharge ordered by . rn 21:29 Discharged to home ambulatory, with family, tl4 21:29 Condition: stable 21:29 Discharge instructions given to patient, family, Instructed on discharge instructions, follow up and referral plans. medication usage, wound care, Demonstrated understanding of instructions, follow-up care, medications, wound care, Prescriptions given X 2, 21:33 Patient left the ED. tl4 Signatures: Jey Jimenez MD MD rn Mitchell, Ginger 2 Logdahl, Josh, RN RN tl4
--- NOTE | 2024-07-13 21:04 | EDPHYS ---
Physician Documentation [facility] Name: Radha Jama Age: 49 yrs Sex: Female : 1975 Arrival Date: 07/13/2024 Time: 19:47 Bed 17 Private MD: ED Physician Jey Jimenez HPI: 07/13 20:21 This 49 yrs old Female presents to ER via Ambulatory with complaints of Insect Bite, rn Pain. 20:21 the patient presents with a swollen area of the back. Onset: The symptoms/episode rn began/occurred 3 day(s) ago. Possible cause(s): unknown. Associated signs and symptoms: Pertinent positives: erythema, swelling. Severity of symptoms: At their worst the symptoms were moderate, in the emergency department the symptoms are unchanged. The patient has not experienced similar symptoms in the past. 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 - Infectious Disease History:: Denies. - Social history:: Smoking status: Patient denies any tobacco usage or history of. - Family history:: not pertinent. - Hospitalizations: : No recent hospitalization is reported. ROS: 20:21 Constitutional: Negative for fever, chills, and weight loss, Skin: Positive for swollen rn area with redness and tenderness to right mid back Exam: 20:21 Constitutional: This is a well developed, well nourished patient who is awake, alert, rn and in no acute distress. Skin: 3 cm area of induration right subscapular region of back, small amount of fluctuance in the center approximately 1 cm. No desquamation or necrotic areas. Vital Signs: 20:15 BP 140 / 80; Pulse 75; Resp 18; Temp 99.3(O); Pulse Ox 99% on R/A; Pain 10/10; tl4 21:27 BP 128 / 75; Pulse 70; Resp 18; Temp 98.1(O); Pulse Ox 99% ; tl4 20:15 Pain Scale: Adult tl4 Procedures: 21:02 I \T\ D: Incision and drainage was performed for an abscess of the right back Prepped rn with Betadine, alcohol, Anesthetized with 3 ml's 1% Lidocaine. Incised with #11 blade. Drained moderate amount purulent fluid. Loculations removed. Abscess cavity explored. Packed with iodoform gauze, Dressing: sterile 4x4 gauze, the patient tolerated the procedure well. MDM: 19:53 Medical Screening Exam initiated rn 21:02 Differential diagnosis: abscess, cellulitis. Data reviewed: vital signs, nurses notes, rn and as a result, I will discharge patient. Counseling: I had a detailed discussion with the patient and/or guardian regarding the historical points, exam findings, and any diagnostic results supporting the discharge/admit diagnosis, the need for outpatient follow up, to return to the emergency department if symptoms worsen or persist or if there are any questions or concerns that arise at home. Response to treatment: the patient's symptoms have markedly improved after treatment. 07/13 20:11 Order name: Incision \T\ Drainage Setup; Complete Time: 20:59 rn Administered Medications: 20:59 Drug: Lidocaine Infiltration (1 %) 1 vials 5 ml Infiltration once; to bedside {Note: tl4 administered by Dr Jimenez to affected area.} Volume: 5 ml; Route: Infiltration; Site: affected area; 21:15 Follow up: Response: No adverse reaction tl4 20:59 Drug: [place] PO 10 mg-325 mg 1 tabs PO once Route: PO; tl4 21:14 Follow up: Response: No adverse reaction; Pain is decreased tl4 20:59 Drug: Ibuprofen PO 600 mg PO once Route: PO; tl4 21:14 Follow up: Response: No adverse reaction; Pain is decreased tl4 21:27 Drug: Trimethoprim-Sulfamethoxazole PO (160 mg-800 mg (DS) 1 tablet PO once Route: PO; tl4 21:27 Follow up: Response: No adverse reaction; Medication administered at discharge. tl4 Disposition Summary: 07/13/24 21:03 Discharge Ordered Notes: Location: Home rn Problem: new rn Symptoms: have improved rn Condition: Stable rn Diagnosis - Cutaneous abscess of back [any part, except buttock] rn Followup: rn - With: Private Physician - When: As needed - Reason: Recheck today's complaints, Re-evaluation by your physician Discharge Instructions: - Discharge Summary Sheet rn - Skin Abscess rn - Incision and Drainage rn - Wound Packing rn - Incision and Drainage, Care After rn Forms: - Medication Reconciliation Form rn - Antibiotic advisory internship - Prescription Opioid Use rn - Patient Portal Instructions rn - Leadership Thank You Letter rn - Work release form tl4 Prescriptions: - Tramadol 50 mg Oral Tablet - take 1 tablet ORAL route every 8 hours as needed; 12 tablet; Refills: 0, rn Product Selection Permitted - Bactrim DS 800-160 mg Oral Tablet - take 1 tablet ORAL route every 12 hours for 10 days; 20 tablet; Refills: 0, rn Product Selection Permitted Signatures: Jey Jimenez MD MD rn Josh Pickett RN RN tl4
[2024-07-13] MEDS ORDERED: SMZ./TMP. 800/160 MG TABLET ONE (21:17)
[2024-07-14 02:44] VITALS: O2SAT 99
[2024-07-14 02:48] VITALS: BP 128/75; TEMP 98.1
== END 2024-07-13 21:33 | disposition home or self-care (01) ==
LOC: ER 19:47
PROC: 0J970ZZ Drainage of Back Subcutaneous Tissue and Fascia, Open Approach (ICD-10-PCS; principal; 2024-07-13)
DX: L02.212 Cutaneous abscess of back [any part, except buttock and flank] (principal)
CPT/HCPCS: 99284; 10060; J2003

== ENCOUNTER 2024-10-27 19:33 | Emergency (ER) | payer OTHER ==
--- NOTE | 2024-10-27 20:15 | EDPHYS ---
Physician Documentation [facility] Name: Radha Jama Age: 49 yrs Sex: Female : 1975 Arrival Date: 10/27/2024 Time: 19:33 Bed 18 Private MD: ED Physician Main White HPI: 10/27 20:08 This 49 yrs old Female presents to ER via Ambulatory with complaints of Arm ec2 Pain, RIGHT SIDE PAIN, Neck Problem. 20:08 Patient arrives today for evaluation of right-sided neck and arm pain. Reports history ec2 of joint pain in that same joint, states that the pain is worse with movement. Reports several days of pain. Denies any falls injuries or trauma. Patient reports otherwise no chest pain or difficulty breathing or other concerns.. 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 - Infectious Disease History:: Denies. - Social history:: Smoking status: Patient denies any tobacco usage or history of. Patient/guardian denies using alcohol, street drugs. ROS: 20:09 Constitutional: as per hpi ec2 Exam: 20:09 Constitutional: GEN: NAD Head: atraumatic Eyes: EOMI Ears: External ears are ec2 normal. CV: regular rate LUNGS: no respiratory distress ABD: non-distended SKIN: no evidence of rashes MSK: Right shoulder with TTP, intact range of motion, intact distal neurovascular status, TTP to the trapezius as well. Vital Signs: 19:59 BP 137 / 84; Pulse 73; Resp 16 S; Temp 97.5(O); Pulse Ox 99% ; Weight 88.45 kg (R); lg3 Height 5 ft. 4 in. (R); Pain 9/10; 19:59 Body Mass Index 33.47 (88.45 kg, 162.56 cm) lg3 19:59 Pain Scale: Adult lg3 Olya Coma Score: 20:30 Eye Response: spontaneous(4). Motor Response: obeys commands(6). Verbal Response: dd2 oriented(5). Total: 15. MDM: 20:02 Medical Screening Exam initiated ec2 20:09 Data reviewed: vital signs, nurses notes. ED course: Patient arrives today for ec2 evaluation of right shoulder pain. Examination is revealing for MSK findings as above. Suspect possible arthritis versus radiculopathy. Will treat the patient's MSK pain. Additionally considered other processes, doubt ACS, doubt PE, doubt dissection. Administered Medications: 20:47 Drug: Lidoderm Topical Patch 5 % (700 mg/patch) 1 patches Topical once; leave on for 12 dd2 hours; cover most painful area; may cut into smaller pieces Route: Topical; Site: affected area; 21:08 Follow up: Response: No adverse reaction dd2 20:48 Drug: Diazepam PO 5 mg PO once Route: PO; dd2 21:09 Follow up: Response: No adverse reaction dd2 20:48 Drug: Ketorolac IM 15 mg IM once Route: IM; Site: right deltoid; dd2 21:03 Follow up: Response: No adverse reaction dd2 20:48 Drug: Acetaminophen PO 1000 mg PO once Route: PO; dd2 21:08 Follow up: Response: No adverse reaction dd2 Disposition Summary: 10/27/24 20:14 Discharge Ordered Notes: Location: Home ec2 Condition: Stable ec2 Diagnosis - Pain in right shoulder ec2 Followup: ec2 - With: Private Physician - When: - Reason: Re-evaluation by your physician Discharge Instructions: - Discharge Summary Sheet ec2 - Joint Pain ec2 Forms: - Medication Reconciliation Form ec2 - Antibiotic Education ec2 - Prescription Opioid Use ec2 - Patient Portal Instructions ec2 - Leadership Thank You Letter ec2 - Work release form dd2 Prescriptions: - methocarbamol 500 mg Oral tablet - take 1 tablet ORAL route 4 times per day; 20 tablet; Refills: 0, Product ec2 Selection Permitted Signatures: Humaira Maciel RN RN lg3 Main White MD MD ec2 DIMITRY VERAS RN RN dd2
--- NOTE | 2024-10-27 20:15 | ER ---
Nurse's Notes [facility] Name: Radha Jama Age: 49 yrs Sex: Female : 1975 Arrival Date: 10/27/2024 Time: 19:33 Bed 18 Private MD: Diagnosis: Pain in right shoulder Presentation: 10/27 19:59 Chief complaint: Patient states: R shoulder injury in 2019. new onset pain in right arm lg3 and into neck X5 days. Coronavirus screen: Client denies travel out of the [place] in the last 14 days. At this time, the client does not indicate any symptoms associated with coronavirus-19. Ebola Screen: No symptoms or risks identified at this time. Initial Sepsis Screen: Does the patient meet any 2 criteria? No. Patient's initial sepsis screen is negative. Does the patient have a suspected source of infection? No. Patient's initial sepsis screen is negative. Risk Assessment: Do you want to hurt yourself or someone else? Patient reports no desire to harm self or others. Onset of symptoms. Onset of symptoms is unknown. 19:59 Method Of Arrival: Ambulatory lg3 19:59 Acuity: SHERRIE 4 lg3 Triage Assessment: 20:01 General: Appears in no apparent distress. uncomfortable, Behavior is calm, cooperative. lg3 Pain: Complains of pain in right arm. EENT: No deficits noted. No signs and/or symptoms were reported regarding the EENT system. Neuro: No deficits noted. Richards Agitation-Sedation Scale (RASS): 0 - Alert and Calm Level of Consciousness is awake, alert, obeys commands, Oriented to person, place, time, situation. Cardiovascular: No deficits noted. Denies chest pain, shortness of breath, Capillary refill < 3 seconds Clubbing of nail beds is absent JVD is absent. Respiratory: No deficits noted. Airway is patent Respiratory effort is even, unlabored, Respiratory pattern is regular, symmetrical. GI: No deficits noted. No signs and/or symptoms were reported involving the gastrointestinal system. : No signs and/or symptoms were reported regarding the genitourinary system. Derm: No deficits noted. No signs and/or symptoms reported regarding the dermatologic system. Skin is intact, is healthy with good turgor, Skin is dry, Skin is normal, Skin temperature is warm. Musculoskeletal: Circulation, motion, and sensation intact. Range of motion: intact in all extremities, Reports pain in right arm. 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 - Infectious Disease History:: Denies. - Social history:: Smoking status: Patient denies any tobacco usage or history of. Patient/guardian denies using alcohol, street drugs. Screenin:30 [facility] ED Fall Risk Assessment (Adult) History of falling in the last 3 months, dd2 including since admission No falls in past 3 months (0 pts) Confusion or Disorientation No (0 pts) Intoxicated or Sedated No (0 pts) Impaired Gait No (0 pts) Mobility Assist Device Used No (0 pt) Altered Elimination No (0 pt) Score/Fall Risk Level 0 - 2 = Low Risk Oriented to surroundings, Maintained a safe environment, Educated pt \T\ family on fall prevention, incl call for assistance when getting out of bed, Assessed \T\ reinforced patient's understanding of fall precautions, Hourly rounding (assess needs \T\ fall precautionary measures) done. Abuse screen: Denies threats or abuse. Nutritional screening: No deficits noted. Tuberculosis screening: No symptoms or risk factors identified. Assessment: 20:30 General: Appears in no apparent distress. uncomfortable, Behavior is calm, cooperative, dd2 appropriate for age. Pain: Complains of pain in right arm, RT NECK, RT SHOULDER Pain currently is 8 out of 10 on a pain scale. Neuro: No deficits noted. Richards Agitation-Sedation Scale (RASS): 0 - Alert and Calm Level of Consciousness is awake, alert, obeys commands, Oriented to person, place, time, situation, Appropriate for age Outbound Telemarketer are equal bilaterally. Cardiovascular: No deficits noted. Patient's skin is warm and dry. Respiratory: No deficits noted. Airway is patent Respiratory effort is even, unlabored, Respiratory pattern is regular, symmetrical. GI: No deficits noted. No signs and/or symptoms were reported involving the gastrointestinal system. : No deficits noted. No signs and/or symptoms were reported regarding the genitourinary system. EENT: No deficits noted. No signs and/or symptoms were reported regarding the EENT system. Derm: No deficits noted. No signs and/or symptoms reported regarding the dermatologic system. Musculoskeletal: Circulation, motion, and sensation intact. Range of motion: intact in all extremities, Reports pain in right arm, RT NECK, RT SHOULDER. Vital Signs: 19:59 BP 137 / 84; Pulse 73; Resp 16 S; Temp 97.5(O); Pulse Ox 99% ; Weight 88.45 kg (R); lg3 Height 5 ft. 4 in. (R); Pain 9/10; 19:59 Body Mass Index 33.47 (88.45 kg, 162.56 cm) lg3 19:59 Pain Scale: Adult lg3 Olya Coma Score: 20:30 Eye Response: spontaneous(4). Motor Response: obeys commands(6). Verbal Response: dd2 oriented(5). Total: 15. ED Course: 19:36 Patient arrived in ED. gm2 20:01 Main White MD is Attending Physician. ec2 20:01 Triage completed. lg3 20:01 Arm band placed on left wrist. lg3 20:12 DIMITRY VERAS RN is Primary Nurse. dd2 20:30 Patient has correct armband on for positive identification. Bed in low position. Call dd2 light in reach. Provided Education on: MEDICATION EDUCATION. Client placed on continuous cardiac and pulse oximetry monitoring. NIBP monitoring applied. Door closed. Noise minimized. Verbal reassurance given. 20:30 No provider procedures requiring assistance completed. Patient did not have IV access dd2 during this emergency room visit. Patient maintains SpO2 saturation greater than 95% on room air. Administered Medications: 20:47 Drug: Lidoderm Topical Patch 5 % (700 mg/patch) 1 patches Topical once; leave on for 12 dd2 hours; cover most painful area; may cut into smaller pieces Route: Topical; Site: affected area; 21:08 Follow up: Response: No adverse reaction dd2 20:48 Drug: Diazepam PO 5 mg PO once Route: PO; dd2 21:09 Follow up: Response: No adverse reaction dd2 20:48 Drug: Ketorolac IM 15 mg IM once Route: IM; Site: right deltoid; dd2 21:03 Follow up: Response: No adverse reaction dd2 20:48 Drug: Acetaminophen PO 1000 mg PO once Route: PO; dd2 21:08 Follow up: Response: No adverse reaction dd2 Medication: 20:30 VIS not applicable for this client. dd2 Outcome: 20:14 Discharge ordered by . ec2 21:12 Discharged to home ambulatory, dd2 21:12 Condition: stable 21:12 Discharge instructions given to patient, Instructed on discharge instructions, follow up and referral plans. medication usage, Demonstrated understanding of instructions, follow-up care, medications, Prescriptions given X 1, 21:12 Patient left the ED. dd2 Signatures: Humaira Macile RN RN lg3 Main White MD MD ec2 Neelam Morton gm2 DIMITRY VERAS RN RN dd2
[2024-10-27] MEDS ORDERED: ACETAMINOPHEN 500 MG TAB ONE (20:33)
[2024-10-27] MEDS ORDERED: LIDOCAINE 4% PATCH ONE (20:34)
[2024-10-27] MEDS ORDERED: DIAZEPAM 5 MG TABLET ONE (20:34)
[2024-10-27] MEDS ORDERED: KETOROLAC 30 MG/ML INJ ONE (20:34)
[2024-10-28 02:01] VITALS: BP 137/84; TEMP 97.5; O2SAT 99
== END 2024-10-27 21:12 | disposition home or self-care (01) ==
LOC: ER 19:33
DX: M25.511 Pain in right shoulder (principal); M54.2 Cervicalgia
CPT/HCPCS: 96372; 99284; J2003